=== PATIENT | female | born 1985 | race Two or more races ===

== ENCOUNTER → 2024-08-19 | Outpatient (BNVA) | payer BC, SELFPAY | END | disposition home or self-care (01) | PROVIDERS: PCP Nurse Practitioner Family; Referring Provider Nurse Practitioner Family; Visit Provider Nurse Practitioner Family | DX: Z76.89 Persons encountering health services in other specified circumstances (principal) | CPT/HCPCS: 99213 ==

== ENCOUNTER → 2025-03-24 | Outpatient (BNVA) | payer BC, SELFPAY | END | disposition home or self-care (01) | PROVIDERS: PCP Nurse Practitioner Family; Referring Provider Nurse Practitioner Family; Visit Provider Nurse Practitioner Family | DX: H65.91 Unspecified nonsuppurative otitis media, right ear (principal); H91.91 Unspecified hearing loss, right ear; T78.40XA Allergy, unspecified, initial encounter; Z12.31 Encounter for screening mammogram for malignant neoplasm of breast | CPT/HCPCS: 99214 ==

== ENCOUNTER → 2025-03-25 | Outpatient (CLI) | payer OTHER, SELFPAY ==
--- NOTE | 2025-03-25 15:37 | XR_ITS ---
Examination: Right knee 2 views Technique one AP lateral right knee 2 views Date and time: March 25, 2025 1605 hours INDICATIONS: Right knee pain post injury one year ago. FINDINGS: Mild to moderate narrowing medial joint space Mild osteoarthritis lateral and patellofemoral joints No fracture IMPRESSION: Mild to moderate tricompartment osteoarthritis
== END | disposition home or self-care (01) ==
PROVIDERS: PCP Nurse Practitioner Family; Referring Provider Family Medicine; Visit Provider Family Medicine
DX: M17.11 Unilateral primary osteoarthritis, right knee (principal)
CPT/HCPCS: 73560